=== PATIENT | female | born 1960 | race Caucasian/White ===

== ENCOUNTER 2016-04-12 14:42 | Inpatient (IN) | payer OTHER ==
[~2016-04-12] VITALS: Ht 167.6 cm; Wt 73.1 kg
[~2016-04-12 14:42] MED LIST: AMLO-512 PO; CEPH-582 PO; CLON.1 PO; FERR-89 PO; FURO20 PO; HYDR-4173 PO; INSLAN SQ; SIMV20TA6 PO
[2016-04-12 15:26] LABS: GLUCOSE,POINT OF CARE 374 MG/DL (70-110)
[2016-04-12] MEDS ORDERED: ASPIRIN 81 MG CHEWABLE TABLET PO ONE (15:45)
[2016-04-12] MEDS ORDERED: NITROGLYCERIN 2% (1 GM=INCH) PACKET TP ONE (15:45)
[2016-04-12 15:48] LABS: BASOPHILS % (AUTO) 0.5 % (0.0-2.0); EOSINOPHILS % (AUTO) 6.6 % (1.0-6.0); HEMATOCRIT 24.9 % (36-46); LYMPHOCYTES # (AUTO) 1.8 K/uL (1.0-4.8); LYMPHOCYTES % (AUTO) 14.6 % (22.0-44.0); MEAN CORPUSCULAR HEMOGLOBIN 28.9 pg (26.0-34.0); MEAN CORPUSCULAR HGB CONC 32.1 G/dL (31.0-37.0); MEAN CORPUSCULAR VOLUME 90 fL (80-100); MONOCYTES # (AUTO) 0.7 K/uL (0.1-1.0); MONOCYTES % (AUTO) 5.4 % (2.0-9.0); NEUTROPHILS % (AUTO) 72.9 % (40.0-70.0); PLATELET COUNT (AUTO) 254 K/uL (150-450); RED BLOOD CELL COUNT(AUTO) 2.76 MIL/uL (4.00-5.20); RED CELL DISTRIBUTION WIDTH 17.9 % (11.5-14.5); WHITE BLOOD COUNT (AUTO) 12.4 K/uL (4.5-11.0)
[2016-04-12 16:40] LABS: BILIRUBIN,TOTAL 0.2 mg/dL (0.1-1.0); CALCIUM, TOTAL 7.5 mg/dL (8.8-10.5); CREATININE 4.15 mg/dL (0.60-1.30); POTASSIUM 4.9 mmol/L (3.5-5.1); TOTAL PROTEIN, SERUM 6.6 g/dL (6.4-8.2)
[2016-04-12] MEDS ORDERED: LABETALOL HCL 5 MG/ML 20 ML VIAL IVP ONE (17:00)
[2016-04-12] MEDS ORDERED: INSULIN REGULAR, HUMAN 100 UNITS/ML IVP ONE ×2 (17:00→19:45)
[2016-04-12] MEDS ORDERED: FUROSEMIDE 40 MG/4 ML VIAL IVP ONE (17:00)
[2016-04-12] MEDS ORDERED: ONDANSETRON HCL 4 MG/2 ML VIAL IVP PRN (18:00)
[2016-04-12] MEDS ORDERED: ACETAMINOPHEN 325 MG TABLET PO PRN ×2 (18:00→20:00)
[2016-04-12] MEDS ORDERED: 0.9% SODIUM CHLORIDE 10 ML SYRINGE IVP PRN (18:00)
[2016-04-12 19:35] LABS: GLUCOSE,POINT OF CARE 351 MG/DL (70-110)
[2016-04-12] MEDS ORDERED: BISACODYL 10 MG RECTAL RECTAL SUPPOSITORY PR PRN (20:00)
[2016-04-12] MEDS ORDERED: ALBUTEROL SULFATE 2.5 MG/0.5 ML NEB SOLUTION NEB PRN (20:00)
[2016-04-12] MEDS ORDERED: DEXTROSE 50%-WATER 25 GM/50 ML SYRINGE IVP PRN (20:00)
[2016-04-12 20:20] VITALS: BP 172/82
[2016-04-12] MEDS ORDERED: INSULIN DETEMIR 100 UNITS/ML SQ SCH (21:00)
[2016-04-12 21:06] LABS: INR 0.9 (0.9-1.1); PROTHROMBIN TIME 9.9 SEC (9.4-11.6)
[2016-04-12] MEDS: NICOTINE 21 MG/24 HOUR PATCH TD SCH (22:22)
[2016-04-12] MEDS: GABAPENTIN 300 MG CAPSULE PO SCH (22:22)
[2016-04-12] MEDS: CloNIDine HCL 0.1 MG TABLET PO SCH (22:22)
[2016-04-12] MEDS: DOCUSATE SODIUM 100 MG CAPSULE PO SCH (22:22)
[2016-04-12] MEDS: FUROSEMIDE 20 MG/2 ML VIAL IVP SCH (22:23)
[2016-04-12] MEDS: INSULIN DETEMIR 100 UNITS/ML SQ SCH (22:28)
[2016-04-12 23:49] VITALS: BP 164/75
[2016-04-13 05:12] VITALS: BP 155/76
[2016-04-13] MEDS: INSULIN ASPART 100 UNITS/ML SQ PRN ×4 (06:19→20:59)
[2016-04-13 07:07] LABS: CALCIUM, TOTAL 7.2 mg/dL (8.8-10.5); CREATININE 4.08 mg/dL (0.60-1.30); POTASSIUM 3.9 mmol/L (3.5-5.1)
[2016-04-13 07:15] VITALS: BP 172/72
[2016-04-13 07:52] LABS: APPEARANCE,URINE CLOUDY (CLEAR); GLUCOSE, URINE (UA) 250 mg/dL (NEGATIVE); KETONES,URINE NEGATIVE (NEGATIVE); LEUKOCYTE ESTERASE ,URINE TRACE (NEGATIVE); OCCULT BLOOD,URINE TRACE (NEGATIVE); PROTEIN,URINE SEE CONFIRM (NEGATIVE)
[2016-04-13 07:53] LABS: ADD UA MICROSCOPIC YES
[2016-04-13 08:22] LABS: SULFOSALICYLIC ACID,URINE 3+ (Negative)
[2016-04-13 08:23] LABS: SQUAMOUS EPITHELIAL CELL,UR Few /LPF (None Seen)
[2016-04-13] MEDS: FUROSEMIDE 20 MG/2 ML VIAL IVP SCH ×2 (08:57→20:54)
[2016-04-13] MEDS: VITAMIN B COMP/VIT C/FOLIC ACID CAPSULE PO SCH (08:57)
[2016-04-13] MEDS: GABAPENTIN 300 MG CAPSULE PO SCH ×2 (08:57→20:54)
[2016-04-13] MEDS: DOCUSATE SODIUM 100 MG CAPSULE PO SCH ×2 (08:58→20:54)
[2016-04-13] MEDS: CloNIDine HCL 0.1 MG TABLET PO SCH ×2 (08:58→20:54)
[2016-04-13] MEDS: PANTOPRAZOLE SODIUM 40 MG DR TABLET PO SCH (08:58)
[2016-04-13] MEDS: OxyCODONE HCL/ACETAMINOPHEN 5-325 MG TABLET PO PRN ×2 (08:58→20:54)
[2016-04-13 11:03] VITALS: BP 162/76
[2016-04-13] MEDS: AmLODIPine BESYLATE 10 MG TABLET PO SCH (11:25)
[2016-04-13] MEDS ORDERED: SODIUM CHLORIDE 0.9% 100 ML ONE (13:39)
[2016-04-13] MEDS: CefTRIAXone 1 GM/DEXTROSE 50 ML IV SCH (13:45)
[2016-04-13 16:32] VITALS: BP 148/80
[2016-04-13 19:33] VITALS: BP 154/77
[2016-04-13 20:42] LABS: GLUCOSE COMMENT 1 Received Meds; GLUCOSE,POINT OF CARE 236 MG/DL (70-110)
[2016-04-13] MEDS: INSULIN DETEMIR 100 UNITS/ML SQ SCH (20:58)
[2016-04-13] MEDS: NICOTINE 21 MG/24 HOUR PATCH TD SCH (21:00)
[2016-04-13 23:57] VITALS: BP 158/76
[2016-04-14 05:00] VITALS: BP 152/74
[2016-04-14 07:29] VITALS: BP 160/74
[2016-04-14] MEDS: DOCUSATE SODIUM 100 MG CAPSULE PO SCH ×2 (08:23→19:06)
[2016-04-14] MEDS: VITAMIN B COMP/VIT C/FOLIC ACID CAPSULE PO SCH (08:23)
[2016-04-14] MEDS: GABAPENTIN 300 MG CAPSULE PO SCH ×2 (08:23→19:06)
[2016-04-14] MEDS: AmLODIPine BESYLATE 10 MG TABLET PO SCH (08:23)
[2016-04-14] MEDS: CloNIDine HCL 0.1 MG TABLET PO SCH ×2 (08:23→19:06)
[2016-04-14] MEDS: FUROSEMIDE 20 MG/2 ML VIAL IVP SCH ×2 (08:23→19:06)
[2016-04-14] MEDS: PANTOPRAZOLE SODIUM 40 MG DR TABLET PO SCH (08:23)
[2016-04-14 10:53] LABS: BASOPHILS # (AUTO) 0.04 K/uL (0.00-0.20); BASOPHILS % (AUTO) 0.3 % (0.0-2.0); EOSINOPHILS # (AUTO) 0.49 K/uL (0.00-0.70); HEMATOCRIT 21.3 % (36-46); LYMPHOCYTES # (AUTO) 1.6 K/uL (1.0-4.8); LYMPHOCYTES % (AUTO) 14.4 % (22.0-44.0); MEAN CORPUSCULAR HEMOGLOBIN 29.1 pg (26.0-34.0); MEAN CORPUSCULAR VOLUME 88 fL (80-100); MONOCYTES # (AUTO) 0.5 K/uL (0.1-1.0); MONOCYTES % (AUTO) 4.9 % (2.0-9.0); NEUTROPHILS # (AUTO) 8.4 K/uL (1.8-7.7); PLATELET COUNT (AUTO) 236 K/uL (150-450); RED BLOOD CELL COUNT(AUTO) 2.41 MIL/uL (4.00-5.20); RED CELL DISTRIBUTION WIDTH 17.7 % (11.5-14.5); WHITE BLOOD COUNT (AUTO) 11.1 K/uL (4.5-11.0)
[2016-04-14 10:57] LABS: CALCIUM, TOTAL 7.5 mg/dL (8.8-10.5); CREATININE 4.28 mg/dL (0.60-1.30); POTASSIUM 4.5 mmol/L (3.5-5.1)
[2016-04-14 11:58] VITALS: BP 157/75
[2016-04-14 12:16] LABS: RBC MORPHOLOGY COMMENT ABNORMAL RBC MORPH
[2016-04-14] MEDS: CefTRIAXone 1 GM/DEXTROSE 50 ML IV SCH (12:44)
[2016-04-14] MEDS: INSULIN ASPART 100 UNITS/ML SQ PRN ×2 (12:48→18:11)
[2016-04-14 16:21] VITALS: BP 160/77
[2016-04-14] MEDS ORDERED: FURO40 PO (18:35)
[2016-04-14] MEDS ORDERED: SIMV-260 PO (18:36)
[2016-04-14] MEDS ORDERED: PERCT PO (18:37)
[2016-04-15 06:57] LABS: GLUCOSE COMMENT 1 Received Meds; GLUCOSE,POINT OF CARE 301 MG/DL (70-110)
[2016-04-15 06:57] LABS: GLUCOSE COMMENT 1 Received Meds; GLUCOSE,POINT OF CARE 177 MG/DL (70-110)
[2016-04-15 06:57] LABS: GLUCOSE,POINT OF CARE 135 MG/DL (70-110)
[2016-04-15 06:57] LABS: GLUCOSE,POINT OF CARE 306 MG/DL (70-110)
[2016-04-16 20:01] LABS: GLUCOSE,POINT OF CARE 105 MG/DL (70-110)
[2016-04-16 20:01] LABS: GLUCOSE,POINT OF CARE 177 MG/DL (70-110)
[2016-04-16 20:06] LABS: GLUCOSE,POINT OF CARE 261 MG/DL (70-110)
== END 2016-04-14 19:20 | disposition home or self-care (01) | DRG 143 ==
LOC: EMS 14:44 → 5N 18:42
PROVIDERS: ADMIT Internal Medicine; ATTEND Internal Medicine
DX: J81.1 Chronic pulmonary edema (principal); E43 Unspecified severe protein-calorie malnutrition; N18.4 Chronic kidney disease, stage 4 (severe); K74.60 Unspecified cirrhosis of liver; E11.22 Type 2 diabetes mellitus with diabetic chronic kidney disease; E87.70 Fluid overload, unspecified; B19.20 Unspecified viral hepatitis C without hepatic coma; D63.8 Anemia in other chronic diseases classified elsewhere; E11.65 Type 2 diabetes mellitus with hyperglycemia; E78.00 Pure hypercholesterolemia, unspecified; E87.1 Hypo-osmolality and hyponatremia; I25.10 Atherosclerotic heart disease of native coronary artery without angina pectoris; N39.0 Urinary tract infection, site not specified; I12.9 Hypertensive chronic kidney disease with stage 1 through stage 4 chronic kidney disease, or unspecified chronic kidney disease; F17.210 Nicotine dependence, cigarettes, uncomplicated; Z79.4 Long term (current) use of insulin; Z86.73 Personal history of transient ischemic attack (TIA), and cerebral infarction without residual deficits; Z79.899 Other long term (current) drug therapy; Z82.49 Family history of ischemic heart disease and other diseases of the circulatory system
CPT/HCPCS: 82962; 87086; 93005; 93306; 96374; 96375; 96376; 99285; J0696; J1815; J1940; J3490; J7050

== ENCOUNTER 2016-08-03 05:37 | Inpatient (IN) | payer OTHER ==
[~2016-08-03] VITALS: Ht 167.6 cm; Wt 54.5 kg
[~2016-08-03 05:37] MED LIST changes: -CEPH-582 PO; -FERR-89 PO; +FURO40 PO; +PERCT PO; +SIMV-260 PO
[2016-08-03] MEDS ORDERED: MUPI1OIN5 NASAL (05:48)
[2016-08-03] MEDS ORDERED: VITAD1000 GT (05:48)
[2016-08-03] MEDS ORDERED: ASPI81 GT (05:48)
[2016-08-03] MEDS ORDERED: CARV3 GT (05:48)
[2016-08-03] MEDS ORDERED: PHOSLOC GT (05:48)
[2016-08-03] MEDS ORDERED: LEVE250T55 GT (05:48)
[2016-08-03] MEDS ORDERED: LISI40TA4 GT (05:48)
[2016-08-03] MEDS ORDERED: GABA-531 GT (05:48)
[2016-08-03] MEDS ORDERED: ATOR40TA28 GT (05:48)
[2016-08-03] MEDS ORDERED: METR500 GT (05:48)
[2016-08-03] MEDS ORDERED: SODIUM CHLORIDE 0.9% 250 ML IV ONE (06:45)
[2016-08-03 06:51] LABS: BASOPHILS # (AUTO) 0.12 K/uL (0.00-0.20); BASOPHILS % (AUTO) 1.4 % (0.0-2.0); EOSINOPHILS # (AUTO) 0.05 K/uL (0.00-0.70); EOSINOPHILS % (AUTO) 0.54 % (1.0-6.0); HEMATOCRIT 23.9 % (36-46); HEMOGLOBIN 7.8 g/dL (12.0-16.0); LYMPHOCYTES # (AUTO) 1.6 K/uL (1.0-4.8); LYMPHOCYTES % (AUTO) 18.1 % (22.0-44.0); MEAN CORPUSCULAR HEMOGLOBIN 29.2 pg (26.0-34.0); MEAN CORPUSCULAR HGB CONC 32.5 G/dL (31.0-37.0); MEAN CORPUSCULAR VOLUME 90 fL (80-100); MONOCYTES # (AUTO) 0.7 K/uL (0.1-1.0); MONOCYTES % (AUTO) 7.8 % (2.0-9.0); NEUTROPHILS # (AUTO) 6.3 K/uL (1.8-7.7); NEUTROPHILS % (AUTO) 72.2 % (40.0-70.0); PLATELET COUNT (AUTO) 215 K/uL (150-450); RED BLOOD CELL COUNT(AUTO) 2.65 MIL/uL (4.00-5.20); RED CELL DISTRIBUTION WIDTH 17.4 % (11.5-14.5); WHITE BLOOD COUNT (AUTO) 8.7 K/uL (4.5-11.0)
[2016-08-03 06:59] LABS: INR 1.2 (0.9-1.1); PROTHROMBIN TIME 12.8 SEC (9.4-11.6)
[2016-08-03 07:05] LABS: ALBUMIN 0.9 g/dL (3.4-5.0); ANION GAP 10 mmol/L (8-16); ASPARTATE AMINOTRANSFERASE 16 U/L (15-37); BILIRUBIN,TOTAL 0.4 mg/dL (0.1-1.0); CALCIUM, TOTAL 6.3 mg/dL (8.8-10.5); CARBON DIOXIDE 22 mmol/L (22-29); CHLORIDE 97 mmol/L (98-107); CREATINE KINASE, TOTAL 50 U/L (26-192); CREATININE 6.73 mg/dL (0.60-1.30); GLOMERULAR FILTR. RATE CALC 6 mL/min (>60); SODIUM SERUM 129 mmol/L (136-145); TOTAL PROTEIN, SERUM 4.7 g/dL (6.4-8.2); UREA NITROGEN, BLOOD 39 mg/dL (7-18)
[2016-08-03 07:07] LABS: POTASSIUM 2.3 mmol/L (3.5-5.1)
[2016-08-03 07:12] LABS: RBC MORPHOLOGY COMMENT ABNORMAL RBC MORPH
[2016-08-03 07:27] LABS: ALANINE AMINOTRANSFERASE 6 U/L (12-78)
[2016-08-03] MEDS ORDERED: POTASSIUM CHL 20 MEQ/0.9% NS 500 ML IV ONE (09:30)
[2016-08-03] MEDS ORDERED: SODIUM CHLORIDE 0.9% 400 ML IV ONE (10:00)
[2016-08-03] MEDS ORDERED: ACETAMINOPHEN 325 MG TABLET PO PRN (10:15)
[2016-08-03] MEDS: POTASSIUM CHL 10 MEQ/WATER 50 ML IV SCH ×2 (10:15→11:04)
[2016-08-03] MEDS ORDERED: ALBUTEROL SULFATE 2.5 MG/0.5 ML NEB SOLUTION NEB PRN (10:15)
[2016-08-03] MEDS ORDERED: BISACODYL 10 MG RECTAL RECTAL SUPPOSITORY PR PRN (10:15)
[2016-08-03] MEDS ORDERED: DEXTROSE 50%-WATER 25 GM/50 ML SYRINGE IVP PRN (10:15)
[2016-08-03] MEDS: ASPIRIN 81 MG CHEWABLE TABLET PO SCH (10:18)
[2016-08-03 11:11] VITALS: BP 87/47
[2016-08-03] MEDS: INSULIN ASPART 100 UNITS/ML SQ PRN ×2 (11:53→22:18)
[2016-08-03 12:37] LABS: GLUCOSE,POINT OF CARE 164 MG/DL (70-110)
[2016-08-03 13:56] VITALS: BP 127/94
[2016-08-03 16:22] VITALS: BP 78/41
[2016-08-03] MEDS: ALBUMIN HUMAN 25%-25GM/100ML 100 ML IV SCH (18:25)
[2016-08-03 20:14] VITALS: BP 100/48
[2016-08-03] MEDS ORDERED: LevETIRAcetam 250 MG TABLET PO SCH (21:00)
[2016-08-03] MEDS: DOCUSATE SODIUM 100 MG CAPSULE PO SCH (21:00)
[2016-08-03] MEDS: HEPARIN SODIUM,PORCINE 5,000 UNITS/ML VIAL SQ SCH (21:57)
[2016-08-03] MEDS: ATORVASTATIN CALCIUM 20 MG TABLET PO SCH (21:57)
[2016-08-03] MEDS: LevETIRAcetam 100 MG/ML 5 ML SOLUTION UDCUP PO SCH (22:20)
[2016-08-03 23:20] VITALS: BP 96/43
[2016-08-04 04:45] VITALS: BP 105/49
[2016-08-04] MEDS: ALBUMIN HUMAN 25%-25GM/100ML 100 ML IV SCH ×2 (05:56→20:05)
[2016-08-04] MEDS: INSULIN ASPART 100 UNITS/ML SQ PRN ×2 (06:07→22:02)
[2016-08-04 06:47] LABS: GLUCOSE,POINT OF CARE 110 MG/DL (70-110)
[2016-08-04] MEDS: HEPARIN SODIUM,PORCINE 5,000 UNITS/ML VIAL SQ SCH ×2 (07:52→21:52)
[2016-08-04] MEDS: DOCUSATE SODIUM 100 MG CAPSULE PO SCH ×2 (07:52→20:26)
[2016-08-04] MEDS: LevETIRAcetam 100 MG/ML 5 ML SOLUTION UDCUP PO SCH ×2 (08:00→21:52)
[2016-08-04] MEDS: LANSOPRAZOLE 30 MG SOLUBLE TABLET PO SCH (08:00)
[2016-08-04] MEDS: ASPIRIN 81 MG CHEWABLE TABLET PO SCH (08:00)
[2016-08-04] MEDS: VITAMIN B COMP/VIT C/FOLIC ACID CAPSULE PO SCH (08:00)
[2016-08-04 08:05] VITALS: BP 105/51
[2016-08-04 10:17] LABS: CALCIUM, TOTAL 6.6 mg/dL (8.8-10.5); CREATININE 7.2 mg/dL (0.60-1.30)
[2016-08-04 10:23] LABS: POTASSIUM 2.4 mmol/L (3.5-5.1)
[2016-08-04] MEDS ORDERED: POTASSIUM CHLORIDE 10% 40 MEQ/30 ML LIQUID UDCUP PO ONE (10:30)
[2016-08-04 10:42] LABS: BASOPHILS % (AUTO) 2.2 % (0.0-2.0); EOSINOPHILS % (AUTO) 0.7 % (1.0-6.0); HEMATOCRIT 22.3 % (36-46); LYMPHOCYTES # (AUTO) 1.2 K/uL (1.0-4.8); LYMPHOCYTES % (AUTO) 15.9 % (22.0-44.0); MEAN CORPUSCULAR HEMOGLOBIN 28.2 pg (26.0-34.0); MEAN CORPUSCULAR HGB CONC 31.6 G/dL (31.0-37.0); MEAN CORPUSCULAR VOLUME 89 fL (80-100); MONOCYTES # (AUTO) 0.4 K/uL (0.1-1.0); MONOCYTES % (AUTO) 4.9 % (2.0-9.0); NEUTROPHILS # (AUTO) 5.8 K/uL (1.8-7.7); NEUTROPHILS % (AUTO) 76.3 % (40.0-70.0); PLATELET COUNT (AUTO) 178 K/uL (150-450); RED BLOOD CELL COUNT(AUTO) 2.49 MIL/uL (4.00-5.20); RED CELL DISTRIBUTION WIDTH 17.8 % (11.5-14.5); WHITE BLOOD COUNT (AUTO) 7.6 K/uL (4.5-11.0)
[2016-08-04 11:43] VITALS: BP 103/48
[2016-08-04 12:10] LABS: RBC MORPHOLOGY COMMENT ABNORMAL RBC MORPH
[2016-08-04 16:34] LABS: OCCULT BLOOD STOOL SINGLE ONLY POSITIVE (NEGATIVE)
[2016-08-04 16:38] VITALS: BP 111/59
[2016-08-04] MEDS ORDERED: ALBUMIN HUMAN 25%-12.5GM/50ML IV BOTTLE IV PRN (17:00)
[2016-08-04] MEDS ORDERED: MANNITOL 25%-12.5 GM/50 ML VIAL IVP PRN (17:00)
[2016-08-04] MEDS ORDERED: MANNITOL 25%-12.5 GM/50 ML VIAL IVP ONE (18:16)
[2016-08-04 19:39] VITALS: BP 119/59
[2016-08-04] MEDS ORDERED: SODIUM CHLORIDE 0.9% 100 ML ONE (20:05)
[2016-08-04] MEDS: PANTOPRAZOLE SODIUM 40 MG/VIAL IVP SCH (21:51)
[2016-08-04] MEDS: ATORVASTATIN CALCIUM 20 MG TABLET PO SCH (21:51)
[2016-08-04 23:51] VITALS: BP 105/43
[2016-08-05 01:16] LABS: HEMATOCRIT 24.7 % (36-46); HEMOGLOBIN 7.9 g/dL (12.0-16.0)
[2016-08-05 02:17] VITALS: BP 120/50
[2016-08-05 04:08] VITALS: BP 141/71
[2016-08-05] MEDS: ALBUMIN HUMAN 25%-25GM/100ML 100 ML IV SCH ×3 (05:46→19:13)
[2016-08-05] MEDS: INSULIN ASPART 100 UNITS/ML SQ PRN ×4 (05:50→20:50)
[2016-08-05 06:47] LABS: GLUCOSE,POINT OF CARE 122 MG/DL (70-110)
[2016-08-05 07:09] VITALS: BP 122/48
[2016-08-05] MEDS: PANTOPRAZOLE SODIUM 40 MG/VIAL IVP SCH ×2 (08:37→20:39)
[2016-08-05] MEDS: LANSOPRAZOLE 30 MG SOLUBLE TABLET PO SCH (08:38)
[2016-08-05] MEDS: ASPIRIN 81 MG CHEWABLE TABLET PO SCH (08:38)
[2016-08-05] MEDS: VITAMIN B COMP/VIT C/FOLIC ACID CAPSULE PO SCH (08:38)
[2016-08-05] MEDS: DOCUSATE SODIUM 100 MG CAPSULE PO SCH ×2 (08:38→20:41)
[2016-08-05] MEDS: LevETIRAcetam 100 MG/ML 5 ML SOLUTION UDCUP PO SCH ×2 (08:38→20:38)
[2016-08-05] MEDS: HEPARIN SODIUM,PORCINE 5,000 UNITS/ML VIAL SQ SCH (08:38)
[2016-08-05 10:07] LABS: GLUCOSE COMMENT 1 Received Meds; GLUCOSE,POINT OF CARE 142 MG/DL (70-110)
[2016-08-05 10:07] LABS: GLUCOSE COMMENT 1 Received Meds; GLUCOSE,POINT OF CARE 117 MG/DL (70-110)
[2016-08-05 12:09] LABS: BASOPHILS # (AUTO) 0.02 K/uL (0.00-0.20); BASOPHILS % (AUTO) 0.3 % (0.0-2.0); EOSINOPHILS # (AUTO) 0.02 K/uL (0.00-0.70); EOSINOPHILS % (AUTO) 0.34 % (1.0-6.0); LYMPHOCYTES # (AUTO) 1.3 K/uL (1.0-4.8); LYMPHOCYTES % (AUTO) 20.9 % (22.0-44.0); MEAN CORPUSCULAR HGB CONC 32.6 G/dL (31.0-37.0); MEAN CORPUSCULAR VOLUME 89 fL (80-100); MONOCYTES # (AUTO) 0.3 K/uL (0.1-1.0); MONOCYTES % (AUTO) 5.3 % (2.0-9.0); NEUTROPHILS # (AUTO) 4.6 K/uL (1.8-7.7); NEUTROPHILS % (AUTO) 73.3 % (40.0-70.0); PLATELET COUNT (AUTO) 147 K/uL (150-450); RED BLOOD CELL COUNT(AUTO) 2.29 MIL/uL (4.00-5.20); RED CELL DISTRIBUTION WIDTH 17.6 % (11.5-14.5); WHITE BLOOD COUNT (AUTO) 6.3 K/uL (4.5-11.0)
[2016-08-05 12:13] VITALS: BP 131/62
[2016-08-05 12:23] LABS: CALCIUM, TOTAL 7.3 mg/dL (8.8-10.5); CREATININE 3.8 mg/dL (0.60-1.30)
[2016-08-05 12:26] LABS: POTASSIUM 2.7 mmol/L (3.5-5.1)
[2016-08-05 12:27] LABS: HEMATOCRIT 20.4 % (36-46); HEMOGLOBIN 6.7 g/dL (12.0-16.0)
[2016-08-05] MEDS ORDERED: POTASSIUM CHLORIDE 10% 40 MEQ/30 ML LIQUID UDCUP PO ONE (12:45)
[2016-08-05 15:13] VITALS: BP 140/73
[2016-08-05] MEDS ORDERED: SODIUM CHLORIDE 0.9% 1,000 ML IV ONE (15:18)
[2016-08-05] MEDS ORDERED: SODIUM CHLORIDE 0.9% 100 ML ONE (15:27)
[2016-08-05] MEDS: POTASSIUM CHL 10 MEQ/WATER 50 ML IV SCH ×4 (15:35→22:50)
[2016-08-05] MEDS ORDERED: DIPHENOXYLATE/ATROP 2.5-0.025 MG TABLET PO PRN (16:30)
[2016-08-05 19:30] VITALS: BP 102/57
[2016-08-05] MEDS: ATORVASTATIN CALCIUM 20 MG TABLET PO SCH (20:40)
[2016-08-05 20:47] LABS: GLUCOSE,POINT OF CARE 186 MG/DL (70-110)
[2016-08-05 20:52] LABS: GLUCOSE COMMENT 1 Received Meds; GLUCOSE,POINT OF CARE 85 MG/DL (70-110)
[2016-08-06] VITALS (7 sets, daily range): BP systolic 134–141; BP diastolic 56–69
[2016-08-06] MEDS: ALBUMIN HUMAN 25%-25GM/100ML 100 ML IV SCH ×2 (05:15→20:52)
[2016-08-06 06:02] LABS: BASOPHILS % (AUTO) 0.3 % (0.0-2.0); EOSINOPHILS % (AUTO) 0.8 % (1.0-6.0); HEMATOCRIT 24.5 % (36-46); LYMPHOCYTES # (AUTO) 1.3 K/uL (1.0-4.8); LYMPHOCYTES % (AUTO) 23.5 % (22.0-44.0); MEAN CORPUSCULAR HEMOGLOBIN 28.1 pg (26.0-34.0); MEAN CORPUSCULAR HGB CONC 30.9 G/dL (31.0-37.0); MEAN CORPUSCULAR VOLUME 91 fL (80-100); MONOCYTES # (AUTO) 0.4 K/uL (0.1-1.0); MONOCYTES % (AUTO) 7.2 % (2.0-9.0); NEUTROPHILS # (AUTO) 3.9 K/uL (1.8-7.7); NEUTROPHILS % (AUTO) 68.2 % (40.0-70.0); PLATELET COUNT (AUTO) 158 K/uL (150-450); RED CELL DISTRIBUTION WIDTH 17.9 % (11.5-14.5); WHITE BLOOD COUNT (AUTO) 5.7 K/uL (4.5-11.0)
[2016-08-06 06:22] LABS: ALBUMIN 3.1 g/dL (3.4-5.0); BILIRUBIN,TOTAL 0.6 mg/dL (0.1-1.0); CALCIUM, TOTAL 7.6 mg/dL (8.8-10.5); CREATININE 4.53 mg/dL (0.60-1.30); MAGNESIUM 1.8 mg/dL (1.80-2.40); PHOSPHORUS 1.6 mg/dL (2.5-4.9); POTASSIUM 4.3 mmol/L (3.5-5.1); TOTAL PROTEIN, SERUM 6.2 g/dL (6.4-8.2)
[2016-08-06 06:22] LABS: GLUCOSE,POINT OF CARE 105 MG/DL (70-110)
[2016-08-06 06:49] LABS: HEMOGLOBIN 7.6 g/dL (12.0-16.0)
[2016-08-06] MEDS: DOCUSATE SODIUM 100 MG CAPSULE PO SCH ×2 (09:00→20:53)
[2016-08-06] MEDS ORDERED: SODIUM PHOS,M-BASIC-D-BASIC 30 MMOL in DEXTROSE 5%-WATER 250 ML IV ONE (09:30)
[2016-08-06 09:32] LABS: GLUCOSE COMMENT 1 Received Meds; GLUCOSE,POINT OF CARE 230 MG/DL (70-110)
[2016-08-06 09:32] LABS: GLUCOSE,POINT OF CARE 134 MG/DL (70-110)
[2016-08-06] MEDS: PANTOPRAZOLE SODIUM 40 MG/VIAL IVP SCH ×2 (09:47→21:00)
[2016-08-06] MEDS: ASPIRIN 81 MG CHEWABLE TABLET PO SCH (09:47)
[2016-08-06] MEDS: LANSOPRAZOLE 30 MG SOLUBLE TABLET PO SCH (09:48)
[2016-08-06] MEDS: VITAMIN B COMP/VIT C/FOLIC ACID CAPSULE PO SCH (09:48)
[2016-08-06] MEDS: LevETIRAcetam 100 MG/ML 5 ML SOLUTION UDCUP PO SCH ×2 (09:48→20:52)
[2016-08-06] MEDS: EPOETIN ALFA 10,000 UNITS/ML VIAL SQ SCH (09:48)
[2016-08-06] MEDS ORDERED: *CLINICAL-LEVOFLOXACIN IVPB DOSING CLINICAL ONE ×2 (10:00)
[2016-08-06] MEDS ORDERED: LEVOFLOXACIN 500 MG/D5% WATER 100 ML IV SCH (11:00)
[2016-08-06 11:22] LABS: RBC MORPHOLOGY COMMENT ABNORMAL RBC MORPH
[2016-08-06] MEDS: MetroNIDAZOLE 500 MG TABLET PO SCH (18:08)
[2016-08-06] MEDS: LACTOBACILLUS ACIDOPHILUS/BULGARICUS GRANULES PACKET PO SCH ×2 (18:08→20:52)
[2016-08-06] MEDS: INSULIN ASPART 100 UNITS/ML SQ PRN (18:32)
[2016-08-06 19:47] LABS: GLUCOSE,POINT OF CARE 154 MG/DL (70-110)
[2016-08-06 19:47] LABS: GLUCOSE,POINT OF CARE 123 MG/DL (70-110)
[2016-08-06] MEDS: ATORVASTATIN CALCIUM 20 MG TABLET PO SCH (20:52)
[2016-08-06] MEDS ORDERED: 0.9% SODIUM CHLORIDE 10 ML SYRINGE IVP PRN (22:00)
[2016-08-07] VITALS (16 sets, daily range): BP systolic 115–151; BP diastolic 56–75
[2016-08-07] MEDS: MetroNIDAZOLE 500 MG TABLET PO SCH ×3 (00:44→17:10)
[2016-08-07] MEDS: ALBUMIN HUMAN 25%-25GM/100ML 100 ML IV SCH ×2 (05:55→18:59)
[2016-08-07] MEDS: ASPIRIN 81 MG CHEWABLE TABLET PO SCH (08:59)
[2016-08-07] MEDS: LevETIRAcetam 100 MG/ML 5 ML SOLUTION UDCUP PO SCH ×2 (08:59→21:33)
[2016-08-07] MEDS: VITAMIN B COMP/VIT C/FOLIC ACID CAPSULE PO SCH (08:59)
[2016-08-07] MEDS: LACTOBACILLUS ACIDOPHILUS/BULGARICUS GRANULES PACKET PO SCH ×3 (08:59→21:33)
[2016-08-07] MEDS: PANTOPRAZOLE SODIUM 40 MG/VIAL IVP SCH ×2 (08:59→21:33)
[2016-08-07] MEDS: LANSOPRAZOLE 30 MG SOLUBLE TABLET PO SCH (09:00)
[2016-08-07] MEDS: DOCUSATE SODIUM 100 MG CAPSULE PO SCH ×2 (09:00→21:33)
[2016-08-07 09:36] LABS: BASOPHILS % (AUTO) 0.9 % (0.0-2.0); EOSINOPHILS % (AUTO) 0.6 % (1.0-6.0); LYMPHOCYTES # (AUTO) 1.2 K/uL (1.0-4.8); LYMPHOCYTES % (AUTO) 23.3 % (22.0-44.0); MEAN CORPUSCULAR HEMOGLOBIN 28.5 pg (26.0-34.0); MEAN CORPUSCULAR HGB CONC 31.8 G/dL (31.0-37.0); MEAN CORPUSCULAR VOLUME 90 fL (80-100); MONOCYTES # (AUTO) 0.4 K/uL (0.1-1.0); MONOCYTES % (AUTO) 7.2 % (2.0-9.0); NEUTROPHILS # (AUTO) 3.4 K/uL (1.8-7.7); PLATELET COUNT (AUTO) 114 K/uL (150-450); RED BLOOD CELL COUNT(AUTO) 2.14 MIL/uL (4.00-5.20); RED CELL DISTRIBUTION WIDTH 17.4 % (11.5-14.5)
[2016-08-07 09:46] LABS: CALCIUM, TOTAL 8.3 mg/dL (8.8-10.5); CREATININE 2.63 mg/dL (0.60-1.30); MAGNESIUM 1.4 mg/dL (1.80-2.40); POTASSIUM 3.2 mmol/L (3.5-5.1)
[2016-08-07 09:47] LABS: HEMATOCRIT 19.2 % (36-46); HEMOGLOBIN 6.1 g/dL (12.0-16.0)
[2016-08-07] MEDS ORDERED: POTASSIUM CHLORIDE 10% 40 MEQ/30 ML LIQUID UDCUP PEG ONE (11:15)
[2016-08-07] MEDS ORDERED: MAGNESIUM SULFATE 4 GM/WATER 100 ML IV ONE (11:15)
[2016-08-07] MEDS: INSULIN ASPART 100 UNITS/ML SQ PRN ×2 (12:18→17:48)
[2016-08-07 12:43] LABS: RBC MORPHOLOGY COMMENT ABNORMAL RBC MORPH
[2016-08-07] MEDS ORDERED: SODIUM CHLORIDE 0.9% 250 ML IV ONE (13:14)
[2016-08-07 17:52] LABS: GLUCOSE,POINT OF CARE 114 MG/DL (70-110)
[2016-08-07 17:52] LABS: GLUCOSE,POINT OF CARE 144 MG/DL (70-110)
[2016-08-07] MEDS: ATORVASTATIN CALCIUM 20 MG TABLET PO SCH (21:33)
[2016-08-08] MEDS: MetroNIDAZOLE 500 MG TABLET PO SCH ×3 (00:22→18:03)
[2016-08-08 04:03] VITALS: BP 143/72
[2016-08-08] MEDS: ALBUMIN HUMAN 25%-25GM/100ML 100 ML IV SCH ×2 (05:35→18:01)
[2016-08-08] MEDS: INSULIN ASPART 100 UNITS/ML SQ PRN ×2 (06:07→18:07)
[2016-08-08 07:14] VITALS: BP 139/69
[2016-08-08] MEDS ORDERED: SODIUM CHLORIDE 0.9% 2,000 ML IV ONE (08:09)
[2016-08-08] MEDS: DOCUSATE SODIUM 100 MG CAPSULE PO SCH (09:00)
[2016-08-08 09:52] LABS: BASOPHILS % (AUTO) 0.4 % (0.0-2.0); EOSINOPHILS % (AUTO) 0.6 % (1.0-6.0); HEMATOCRIT 25.2 % (36-46); LYMPHOCYTES # (AUTO) 1.2 K/uL (1.0-4.8); LYMPHOCYTES % (AUTO) 24.7 % (22.0-44.0); MEAN CORPUSCULAR HEMOGLOBIN 28.5 pg (26.0-34.0); MEAN CORPUSCULAR HGB CONC 31.8 G/dL (31.0-37.0); MEAN CORPUSCULAR VOLUME 89 fL (80-100); MONOCYTES # (AUTO) 0.2 K/uL (0.1-1.0); NEUTROPHILS # (AUTO) 3.4 K/uL (1.8-7.7); NEUTROPHILS % (AUTO) 70.3 % (40.0-70.0); PLATELET COUNT (AUTO) 100 K/uL (150-450); RED BLOOD CELL COUNT(AUTO) 2.81 MIL/uL (4.00-5.20); RED CELL DISTRIBUTION WIDTH 16.4 % (11.5-14.5); WHITE BLOOD COUNT (AUTO) 4.9 K/uL (4.5-11.0)
[2016-08-08 10:01] LABS: CALCIUM, TOTAL 8.2 mg/dL (8.8-10.5); CREATININE 2.09 mg/dL (0.60-1.30); MAGNESIUM 2.1 mg/dL (1.80-2.40); POTASSIUM 3.1 mmol/L (3.5-5.1)
[2016-08-08 10:27] LABS: PHOSPHORUS 0.7 mg/dL (2.5-4.9)
[2016-08-08] MEDS ORDERED: MANNITOL 25%-12.5 GM/50 ML VIAL IVP PRN (10:30)
[2016-08-08] MEDS ORDERED: ALBUMIN HUMAN 25%-12.5GM/50ML IV BOTTLE IV PRN (10:30)
[2016-08-08] MEDS ORDERED: SODIUM PHOS,M-BASIC-D-BASIC 30 MMOL in DEXTROSE 5%-WATER 250 ML IV ONE (11:00)
[2016-08-08] MEDS ORDERED: POTASSIUM CHLORIDE 10 MEQ ER TABLET PO ONE (11:00)
[2016-08-08 11:02] VITALS: BP 147/79
[2016-08-08] MEDS: LevETIRAcetam 100 MG/ML 5 ML SOLUTION UDCUP PO SCH (11:45)
[2016-08-08] MEDS: LANSOPRAZOLE 30 MG SOLUBLE TABLET PO SCH (11:45)
[2016-08-08] MEDS: LACTOBACILLUS ACIDOPHILUS/BULGARICUS GRANULES PACKET PO SCH ×2 (11:45→18:01)
[2016-08-08] MEDS: ASPIRIN 81 MG CHEWABLE TABLET PO SCH (11:45)
[2016-08-08] MEDS: VITAMIN B COMP/VIT C/FOLIC ACID CAPSULE PO SCH (11:46)
[2016-08-08] MEDS: PANTOPRAZOLE SODIUM 40 MG/VIAL IVP SCH (11:52)
[2016-08-08] MEDS: EPOETIN ALFA 10,000 UNITS/ML VIAL SQ SCH (12:49)
[2016-08-08 15:41] VITALS: BP 147/78
[2016-08-08 16:32] LABS: GLUCOSE COMMENT 1 Received Meds; GLUCOSE,POINT OF CARE 172 MG/DL (70-110)
[2016-08-08 19:19] VITALS: BP 114/62
[2016-08-08] MEDS ORDERED: LEVOFLOXACIN 500 MG/D5% WATER 100 ML IV SCH (20:00)
[2016-08-09 14:06] LABS: GLUCOSE COMMENT 1 Received Meds; GLUCOSE,POINT OF CARE 182 MG/DL (70-110)
[2016-08-09 16:52] LABS: GLUCOSE COMMENT 1 Received Meds; GLUCOSE,POINT OF CARE 183 MG/DL (70-110)
[2016-08-10 08:42] LABS: GLUCOSE COMMENT 1 Received Meds; GLUCOSE,POINT OF CARE 106 MG/DL (70-110)
[2016-08-10 15:27] LABS: GLUCOSE,POINT OF CARE 168 MG/DL (70-110)
[2016-08-10 15:27] LABS: GLUCOSE,POINT OF CARE 109 MG/DL (70-110)
[2016-08-10 15:27] LABS: GLUCOSE COMMENT 1 Received Meds; GLUCOSE,POINT OF CARE 233 MG/DL (70-110)
== END 2016-08-08 20:00 | disposition left against medical advice (07) | DRG 460 ==
LOC: EMS 05:38 → AHU 09:50 → 5N 12:19
PROVIDERS: ADMIT Internal Medicine; ATTEND Internal Medicine
PROC: 5A1D60Z (ICD-10-PCS; principal; 2016-08-06)
PROC: 30233N1 Transfusion of Nonautologous Red Blood Cells into Peripheral Vein, Percutaneous Approach (ICD-10-PCS; 2016-08-07)
DX: I12.0 Hypertensive chronic kidney disease with stage 5 chronic kidney disease or end stage renal disease (principal); G93.41 Metabolic encephalopathy; E43 Unspecified severe protein-calorie malnutrition; K55.9 Vascular disorder of intestine, unspecified; N18.6 End stage renal disease; E11.22 Type 2 diabetes mellitus with diabetic chronic kidney disease; E87.6 Hypokalemia; E87.1 Hypo-osmolality and hyponatremia; E11.65 Type 2 diabetes mellitus with hyperglycemia; I25.10 Atherosclerotic heart disease of native coronary artery without angina pectoris; R62.7 Adult failure to thrive; E88.09 Other disorders of plasma-protein metabolism, not elsewhere classified; F32.9 Major depressive disorder, single episode, unspecified; G40.909 Epilepsy, unspecified, not intractable, without status epilepticus; E78.00 Pure hypercholesterolemia, unspecified; D63.1 Anemia in chronic kidney disease; I69.359 Hemiplegia and hemiparesis following cerebral infarction affecting unspecified side; F17.210 Nicotine dependence, cigarettes, uncomplicated; Z82.49 Family history of ischemic heart disease and other diseases of the circulatory system; Z79.4 Long term (current) use of insulin; Z99.2 Dependence on renal dialysis; Z68.1 Body mass index [BMI] 19.9 or less, adult; Z93.1 Gastrostomy status; Z74.01 Bed confinement status; Z79.82 Long term (current) use of aspirin; Z79.899 Other long term (current) drug therapy; Z79.01 Long term (current) use of anticoagulants
CPT/HCPCS: 70450; 82271; 82728; 82962; 83540; 83550; 83735; 84100; 84132; 85014; 85018; 86850; 86900; 86901; 86920; 87045; 87081; 87324; 87340; 87449; 89055; 90935; 92610; 93005; 96360; 96361; 99285; C9113; J0885; J1644; J1815; J1956; J2150; J3475; J3480; J3490; J7030; J7040; J7050; J7060; P9016; P9046

== ENCOUNTER 2016-08-29 11:51 | Emergency (ER) | payer OTHER ==
[~2016-08-29] VITALS: Ht 157.5 cm; Wt 68.2 kg
[~2016-08-29 11:51] MED LIST changes: -AMLO-512 PO; +ASPI81 GT; +ATOR40TA28 GT; +CARV3 GT; -CLON.1 PO; -FURO20 PO; -FURO40 PO; +GABA-531 GT; -HYDR-4173 PO; -INSLAN SQ; +LEVE250T55 GT; +LISI40TA4 GT; +METR500 GT; +MUPI1OIN5 NASAL; -PERCT PO; +PHOSLOC GT; -SIMV-260 PO; -SIMV20TA6 PO; +VITAD1000 GT
[2016-08-29] MEDS ORDERED: SODIUM CHLORIDE 0.9% 250 ML IV ONE (12:45)
[2016-08-29 12:52] LABS: GLUCOSE,POINT OF CARE 81 MG/DL (70-110)
[2016-08-29 13:21] VITALS: BP 136/78
== END 2016-08-29 14:28 | disposition left against medical advice (07) ==
LOC: EMS 11:53
DX: I95.3 Hypotension of hemodialysis (principal); F17.210 Nicotine dependence, cigarettes, uncomplicated; I25.10 Atherosclerotic heart disease of native coronary artery without angina pectoris; E78.00 Pure hypercholesterolemia, unspecified; I12.0 Hypertensive chronic kidney disease with stage 5 chronic kidney disease or end stage renal disease; E11.22 Type 2 diabetes mellitus with diabetic chronic kidney disease; N18.6 End stage renal disease; Z99.2 Dependence on renal dialysis; Z86.73 Personal history of transient ischemic attack (TIA), and cerebral infarction without residual deficits; Z79.82 Long term (current) use of aspirin
CPT/HCPCS: 82962; 93005; 99285; 99406